=== PATIENT | female | born 1995 ===

== ENCOUNTER 2017-05-01 10:54 | Emergency (ER) | payer MEDICAID ==
[2017-05-01 11:10] VITALS: BP 112/70; PULSE 88; RESP 20; TEMP 98.3; O2SAT 99
[2017-05-01 11:11] VITALS: BMI 26.6
[2017-05-01 12:10] LABS: BASO % 0.4 % (0.0-2.0); EOS % 0.4 % (0.0-4.0); HEMATOCRIT 44.4 % (34.0-47.0); LYMPH # 2.2 K/uL (1.0-4.3); LYMPH % 26.7 % (20.0-40.0); MEAN CELL VOLUME 91.2 fl (81.0-99.0); MEAN CORPUSCULAR HEMOGLOBIN 30.8 pg (27.0-31.0); MEAN CORPUSCULAR HGB CONC 33.7 g/dL (33.0-37.0); MEAN PLATELET VOLUME 9.1 fl (7.2-11.7); MONO # 0.4 K/uL (0.0-0.8); MONO % 5.2 % (0.0-10.0); NEUT # 5.6 K/uL (1.8-7.0); NEUT % 67.3 % (50.0-75.0); NRBC % 0.1 % (0.0-0.0); RED CELL DISTRIBUTION WIDTH 12.8 % (11.5-14.5); WHITE BLOOD COUNT 8.3 K/uL (4.8-10.8)
[2017-05-01 12:17] LABS: ALB/GLOB RATIO 1.6 (1.0-2.1); ALKALINE PHOSPHATASE 82 U/L (38-126); ALT/SGPT 95 U/L (9-52); AST/SGOT 36 U/L (14-36); BILIRUBIN,TOTAL 0.5 mg/dl (0.2-1.3); BLOOD UREA NITROGEN 13 mg/dl (7-17); CALCIUM 9.1 mg/dL (8.4-10.2); CARBON DIOXIDE 21 mmol/L (22-30); CHLORIDE 102 mmol/L (98-107); GFR AFRICAN-AMERICAN > 60; GLUCOSE,RANDOM 235 mg/dL (65-105); POTASSIUM 3.8 MMOL/L (3.6-5.0); SODIUM 137 mmol/l (132-148); TOTAL PROTEIN 7.3 G/DL (6.3-8.2)
[2017-05-01] MEDS ORDERED: Sodium Chloride 0.9% 1,000 ML IV STA (12:30)
--- NOTE | 2017-05-01 13:14 | ED PDOC ---
HPI: Abdomen Time Seen by Provider: 05/01/17 11:34 Chief Complaint (Nursing): Abdominal Pain Chief Complaint (Provider): Pelvic pain History Per: Patient History/Exam Limitations: no limitations Onset/Duration Of Symptoms: Days (3) Quality Of Discomfort: Cramping Associated Symptoms: Nausea. denies: Chest Pain, Urinary Symptoms Additional Complaint(s): Patient is a 21 y/o female with no significant past medical history presenting to the emergency department for pelvic cramping with associated nausea ongoing for three days. Denies dizziness, weakness, vaginal bleeding, chest pain, shortness of breath, urinary symptoms, or other complaints. PCP: none provided. : 2 (confirmed by ED Test) Para: 0 Miscarriage: 1 Past Medical History Reviewed: Historical Data, Nursing Documentation, Vital Signs Vital Signs: Last Vital Signs Temp 98.3 F 05/01/17 11:09 Pulse 88 05/01/17 11:09 Resp 20 05/01/17 11:09 BP 112/70 05/01/17 11:09 Pulse Ox 99 05/01/17 13:21 - Medical History PMH: No Chronic Diseases - Surgical History Surgical History: Tonsillectomy - Family History Family History: States: Unknown Family Hx - Social History Current smoker - smoking cessation education provided: No Ex-Smoker (has not smoked in the last 12 months): No Alcohol: None Drugs: Denies - Home Medications Home Medications: Ambulatory Orders Medication Instructions Recorded Ondansetron [Zofran] 4 mg PO Q6H PRN #10 tab 05/01/17 - Allergies Allergies/Adverse Reactions: Allergies Allergy/AdvReac Type Severity Reaction Status Date / Time No Known Allergies Allergy Verified 05/01/17 11:20 Review of Systems ROS Statement: Except As Marked, All Systems Reviewed And Found Negative Cardiovascular: Negative for: Chest Pain Respiratory: Negative for: Shortness of Breath Gastrointestinal: Positive for: Nausea, Abdominal Pain (pelvic cramping) Genitourinary Female: Negative for: Dysuria, Frequency, Hematuria, Vaginal Bleeding Neurological: Negative for: Weakness Physical Exam - Reviewed Nursing Documentation Reviewed: Yes Vital Signs Reviewed: Yes - Physical Exam Appears: Positive for: Non-toxic, No Acute Distress Head Exam: Positive for: ATRAUMATIC, NORMAL INSPECTION, NORMOCEPHALIC Skin: Positive for: Normal Color, Warm, Dry Eye Exam: Positive for: Normal appearance Neck: Positive for: Normal, Painless ROM, Supple Cardiovascular/Chest: Positive for: Regular Rate, Rhythm. Negative for: Murmur Respiratory: Positive for: Normal Breath Sounds. Negative for: Accessory Muscle Use, Respiratory Distress Gastrointestinal/Abdominal: Positive for: Tenderness (mild right lower pelvic) Extremity: Positive for: Normal ROM. Negative for: Pedal Edema Neurologic/Psych: Positive for: Alert, Oriented (x3) - Laboratory Results Result Diagrams: 05/01/17 11:55 05/01/17 11:45 - ECG O2 Sat by Pulse Oximetry: 99 (RA) Pulse Ox Interpretation: Normal Medical Decision Making Medical Decision Making: Time: 11:53 Initial impression: Lower pelvic pain Initial plan: Beta-HCG Quantitative ED Urine Dipstick ED Urine Normal Saline 1 L IV OB Transvaginal Ultrasound Reevaluation 12:00 Urine test is positive. Will do workup to rule out ectopic with ultrasound. US: Accession No. : [id number] Patient Name / ID : NICOLE TEJADA / [id number] Exam Date : 05/01/2017 12:42:13 ( Approved ) Study Comment : Sex / Age : F / 21Y Creator : Bhanu Antunez MD Dictator : Bhanu Antunez MD Jewelry Engraver : Senior Litigation Paralegal : Bhanu Antunez MD Approver2 : Report Date : 05/01/2017 14:44:33 My Comment : PROCEDURE: First trimester ultrasound HISTORY: , pain COMPARISON: None available. TECHNIQUE: Standard protocol for this study/examination. FINDINGS: LMP: 03/16/2017 Prior examinations from the current : None TECHNIQUE: Real-time 2D imaging, duplex and color Doppler. FINDINGS: No pole identified currently Small subchorionic hemorrhage identified 3 x 3 x 8 mm. Gestational age based on gestational sac measurement 0.9 5.7 x 1.2 cm is out of range below the threshold for calculation of reliable gestational age. Gestational age derived from LMP: 6 weeks 4 days JASBIR based on LMP: 12/21/2017 JASBIR based on biometry: Cannot be determined Gestational concordance documented Yolk sac identified Uterus: Unremarkable. No Cervical abnormalities: Negative examination for cervical dilatation or effacement. Subchorionic hemorrhage: None ADNEXA: Right: 2.4 x 4.4 cm. Normal Doppler arterial waveform documented. Left: 2.5 x 2.9 cm. Normal Doppler arterial waveform documented Fluid in the cul-de-sac: None IMPRESSION: Early intrauterine gestation. Calculation of reliable gestational age based on sac measurement is not possible at this time. No pole identified. no bleeding, Rh as outpatient Rec pelvic rest, followup OB/PMD as sugars elevated. Improved in ED, feels well, denies current pain or bleeding. Scribe Attestation: Documented by Candi Alba, acting as a scribe for Tc Yoon DO. Provider Scribe Attestation: All medical record entries made by the Scribe were at my direction and personally dictated by me. I have reviewed the chart and agree that the record accurately reflects my personal performance of the history, physical exam, medical decision making, and the department course for this patient. I have also personally directed, reviewed, and agree with the discharge instructions and disposition. Disposition - Clinical Impression Clinical Impression: Hyperglycemia, Threatened - Patient ED Disposition Is Patient to be Admitted: No Counseled Patient/Family Regarding: Studies Performed, Diagnosis, Need For Followup, Rx Given - Disposition Referrals: [facility] [Outside] Disposition: Routine/Home Disposition Time: 15:05 Condition: STABLE Additional Instructions: See OB doctor in 2-3 days for followup. Recommend pelvic rest- nothing in vagina, no sex, no heavy exertion. Your sugar was mildly elevated, you may be at risk of diabetes, which could predispose to miscarriage. See OB and PMD as soon as possible for further testing and possible treatment. Prescriptions: Ondansetron [Zofran] 4 mg PO Q6H PRN #10 tab PRN Reason: Nausea/Vomiting Instructions: Threatened Miscarriage (ED), Hyperemesis Gravidarum (ED), Hyperglycemia, Non-Diabetic (ED) Forms: [employer] (Amharic)
--- NOTE | 2017-05-01 14:46 | US ---
PROCEDURE: First trimester ultrasound HISTORY: , pain COMPARISON: None available. TECHNIQUE: Standard protocol for this study/examination. FINDINGS: LMP: 03/16/2017 Prior examinations from the current : None TECHNIQUE: Real-time 2D imaging, duplex and color Doppler. FINDINGS: No pole identified currently Small subchorionic hemorrhage identified 3 x 3 x 8 mm. Gestational age based on gestational sac measurement 0.9 5.7 x 1.2 cm is out of range below the threshold for calculation of reliable gestational age. Gestational age derived from LMP: 6 weeks 4 days JASBIR based on LMP: 12/21/2017 JASBIR based on biometry: Cannot be determined Gestational concordance documented Yolk sac identified Uterus: Unremarkable. No Cervical abnormalities: Negative examination for cervical dilatation or effacement. Subchorionic hemorrhage: None ADNEXA: Right: 2.4 x 4.4 cm. Normal Doppler arterial waveform documented. Left: 2.5 x 2.9 cm. Normal Doppler arterial waveform documented Fluid in the cul-de-sac: None IMPRESSION: Early intrauterine gestation. Calculation of reliable gestational age based on sac measurement is not possible at this time. No pole identified.
== END 2017-05-01 16:02 | disposition home or self-care (01) ==
LOC: H.ER 10:54
DX: R11.0 Nausea (principal); O20.0 Threatened abortion; R73.9 Hyperglycemia, unspecified; Z87.891 Personal history of nicotine dependence
CPT/HCPCS: 76817; 80053; 81025; 84702; 85025; 96360; 99282; J7040

== ENCOUNTER 2017-05-28 14:57 | Emergency (ER) | payer SELFPAY ==
[2017-05-28 14:57] VITALS: BMI 26.6
[2017-05-28 15:09] VITALS: TEMP 98; O2SAT 98
--- NOTE | 2017-05-28 15:30 | ED PDOC ---
HPI: Female Pain Time Seen by Provider: 05/28/17 15:10 Chief Complaint (Nursing): Female Genitourinary History Per: Patient Onset/Duration Of Symptoms: Days (2) Current Symptoms Are (Timing): Still Present Severity: Mild Pain Scale Rating Of: 2 Quality Of Discomfort: Cramping Associated Symptoms: denies: Nausea, Vomiting, Diarrhea, Urinary Symptoms Additional Complaint(s): Vaginal bleeding/blood in urine x 2 days assoc with lower crampy abd pain. No dysuria or frequency Abnormal Vaginal Bleeding: Yes Past Medical History Vital Signs: Last Vital Signs Temp 98 F 05/28/17 15:06 Pulse 72 05/28/17 15:06 Resp 18 05/28/17 15:06 BP 110/62 05/28/17 15:06 Pulse Ox 98 05/28/17 15:06 - Medical History PMH: No Chronic Diseases - Surgical History Surgical History: Tonsillectomy - Family History Family History: States: Unknown Family Hx - Home Medications Home Medications: Ambulatory Orders Medication Instructions Recorded Ondansetron [Zofran] 4 mg PO Q6H PRN #10 tab 05/01/17 - Allergies Allergies/Adverse Reactions: Allergies Allergy/AdvReac Type Severity Reaction Status Date / Time No Known Allergies Allergy Verified 05/01/17 11:20 Review of Systems Constitutional: Negative for: Fever Gastrointestinal: Positive for: Abdominal Pain Genitourinary Female: Positive for: Hematuria, Vaginal Bleeding. Negative for: Dysuria, Frequency Musculoskeletal: Negative for: Back Pain Physical Exam - Physical Exam Appears: Positive for: Non-toxic, No Acute Distress Skin: Positive for: Normal Color, Warm, DRY Gastrointestinal/Abdominal: Positive for: Bowel Sounds, Soft. Negative for: Tenderness Pelvic Exam: Positive for: External Exam Normal, No Cerv. Motion Tender, No Masses. Negative for: Active Bleeding, Blood, Tender Adnexa, Tender Uterus - Laboratory Results Result Diagrams: 05/28/17 15:45 - ECG O2 Sat by Pulse Oximetry: 98 Disposition - Clinical Impression Clinical Impression: Threatened - Patient ED Disposition Is Patient to be Admitted: No Counseled Patient/Family Regarding: Studies Performed, Diagnosis, Need For Followup, Rx Given - Disposition Referrals: [facility] [Outside] Disposition: Routine/Home Disposition Time: 17:19 Condition: FAIR Instructions: Threatened Miscarriage (ED) Forms: [employer] (Greenlandic)
[2017-05-28 16:00] LABS: BASO % 0.3 % (0.0-2.0); EOS % 0.5 % (0.0-4.0); HEMATOCRIT 39.4 % (34.0-47.0); LYMPH % 22.5 % (20.0-40.0); MEAN CELL VOLUME 91.9 fl (81.0-99.0); MEAN CORPUSCULAR HEMOGLOBIN 31.3 pg (27.0-31.0); MEAN PLATELET VOLUME 8.8 fl (7.2-11.7); MONO # 0.5 K/uL (0.0-0.8); MONO % 5.9 % (0.0-10.0); NEUT # 6.4 K/uL (1.8-7.0); NEUT % 70.8 % (50.0-75.0); NRBC % 0.1 % (0.0-0.0); RED CELL DISTRIBUTION WIDTH 12.8 % (11.5-14.5)
--- NOTE | 2017-05-28 17:04 | US ---
Indication: Rule out ectopic Comparison: None available. Technique: Ob transvaginal ultrasound. Findings: Cervix length measures approximately 4.6 cm. There is a single intrauterine fetus present. The gestational sac measures 3.7 cm compatible with gestational age 8 weeks 6 days. The crown-rump length measures 2.5 cm and is compatible with a gestational age of 9 weeks 2 days. There is heart motion which measured 133.1 BPM. The right ovary measures 3.8 x 1.9 x 2.8 cm and contains 1 cm simple appearing follicle/cyst. The left ovary measures 2.7 x 2.9 x 1.5 cm. Blood flow was demonstrated to both ovaries. Impression: Live single intrauterine with estimated gestational age 9 weeks 2 days by crown-rump length calculation and 8 weeks 6 days by gestational sac calculation. heart rate 133.1 bpm. Advise an anomaly screen at 16-18 weeks gestational age
[2017-05-28 17:39] LABS: ALB/GLOB RATIO 1.6 (1.0-2.1); ALKALINE PHOSPHATASE 58 U/L (38-126); ALT/SGPT 59 U/L (9-52); AST/SGOT 25 U/L (14-36); BILIRUBIN,TOTAL 0.3 mg/dl (0.2-1.3); BLOOD UREA NITROGEN 10 mg/dl (7-17); CALCIUM 9.7 mg/dL (8.4-10.2); CARBON DIOXIDE 22 mmol/L (22-30); CHLORIDE 105 mmol/L (98-107); GFR AFRICAN-AMERICAN > 60; GLUCOSE,RANDOM 117 mg/dL (65-105); POTASSIUM 4.3 MMOL/L (3.6-5.0); SODIUM 139 mmol/l (132-148); TOTAL PROTEIN 6.8 G/DL (6.3-8.2)
[2017-05-28 17:56] VITALS: BP 112/70; PULSE 78; RESP 16
== END 2017-05-28 17:56 | disposition home or self-care (01) ==
LOC: H.ER 14:57
DX: O20.0 Threatened abortion (principal)

== ENCOUNTER 2017-06-12 12:35 | Emergency (ER) | payer SELFPAY ==
[2017-06-12 12:35] VITALS: BMI 26.6
[2017-06-12 12:42] VITALS: BP 99/53; PULSE 81; RESP 16; TEMP 98.5; O2SAT 100
--- NOTE | 2017-06-12 13:02 | ED PDOC ---
Lower Extremity Pain/Injury Time Seen by Provider: 06/12/17 12:38 Chief Complaint (Nursing): Lower Extremity Problem/Injury Chief Complaint (Provider): Left toe pain History Per: Patient History/Exam Limitations: no limitations Onset/Duration Of Symptoms: Days (x9) Current Symptoms Are (Timing): Still Present Additional Complaint(s): Alena is a 22 y/o female who presents to the ED complaining of left toe nail avulsion since last Monday. She reports the toe nail has been progressively worsening, now with redness at the site. Patient also has pain while walking. Of note, she states she is 11 weeks . PMD: Provider FABY Past Medical History Reviewed: Historical Data, Nursing Documentation, Vital Signs Vital Signs: Last Vital Signs Temp 98.5 F 06/12/17 12:41 Pulse 81 06/12/17 12:41 Resp 16 06/12/17 12:41 BP 99/53 L 06/12/17 12:41 Pulse Ox 100 06/12/17 12:41 - Medical History PMH: No Chronic Diseases - Surgical History Surgical History: Tonsillectomy - Family History Family History: States: Unknown Family Hx - Social History Current smoker - smoking cessation education provided: No Alcohol: None Drugs: Denies - Home Medications Home Medications: Ambulatory Orders Medication Instructions Recorded Ondansetron [Zofran] 4 mg PO Q6H PRN #10 tab 05/01/17 Amoxicillin 875 mg PO BID #20 tab 06/12/17 - Allergies Allergies/Adverse Reactions: Allergies Allergy/AdvReac Type Severity Reaction Status Date / Time No Known Allergies Allergy Verified 05/01/17 11:20 Review of Systems ROS Statement: Except As Marked, All Systems Reviewed And Found Negative Constitutional: Negative for: Fever Musculoskeletal: Positive for: Other (Left great toe pain, nail avulsion) Physical Exam - Reviewed Nursing Documentation Reviewed: Yes Vital Signs Reviewed: Yes - Physical Exam Appears: Positive for: Well, Non-toxic, No Acute Distress Head Exam: Positive for: ATRAUMATIC, NORMAL INSPECTION, NORMOCEPHALIC Eye Exam: Positive for: Normal appearance Neck: Positive for: Normal Respiratory: Negative for: Respiratory Distress Extremity: Positive for: Normal ROM, Other (Left great toe nail avulsion with granulated tissue and localized erythema). Negative for: Pedal Edema Neurologic/Psych: Positive for: Alert, Oriented - ECG O2 Sat by Pulse Oximetry: 100 (RA) Pulse Ox Interpretation: Normal Medical Decision Making Medical Decision Making: Time: 12:59 Initial Plan: Discussed benefits and risks of X-Ray associated with . Patient declined X-Ray at this time. Patient will be discharged home with antibiotic. Counseled on diagnosis and the importance of follow up with Podiatry Clinic. There is agreement to discharge plan. Return if symptoms persist or worsen. Scribe Attestation: Documented by Swathi Garduno, acting as a scribe for Irma Samuels PA-C Provider Scribe Attestation: All medical record entries made by the Scribe were at my direction and personally dictated by me. I have reviewed the chart and agree that the record accurately reflects my personal performance of the history, physical exam, medical decision making, and the department course for this patient. I have also personally directed, reviewed, and agree with the discharge instructions and disposition. Disposition - Clinical Impression Clinical Impression: Toe injury, Paronychia - Patient ED Disposition Is Patient to be Admitted: No Counseled Patient/Family Regarding: Diagnosis, Need For Followup, Rx Given - Disposition Referrals: Podiatry Clinic [Outside] Disposition: Routine/Home Disposition Time: 12:59 Condition: STABLE Prescriptions: Amoxicillin 875 mg PO BID #20 tab Instructions: Paronychia (ED) Forms: [employer] (Turkmen)
== END 2017-06-12 13:17 | disposition home or self-care (01) ==
LOC: H.ER 12:35
DX: L03.039 Cellulitis of unspecified toe (principal)

== ENCOUNTER 2018-12-29 11:25 | Emergency (ER) | payer MEDICAID, OTHER ==
[2018-12-29 11:39] VITALS: BP 113/68; PULSE 91; RESP 18; TEMP 98.3; O2SAT 100
[2018-12-29 11:40] VITALS: BMI 26.2
--- NOTE | 2018-12-29 12:11 | ED PDOC ---
Lower Extremity Pain/Injury Time Seen by Provider: 12/29/18 12:01 Chief Complaint (Nursing): Lower Extremity Problem/Injury History Per: Patient Additional Complaint(s): Pt. states for the past several days she's had atraumatic L great toe pain. Has had nail removed in the past and has had to see a campus security director in the past. Denies fever, trauma, discharge, hx of DM. Past Medical History Reviewed: Historical Data, Nursing Documentation, Vital Signs Vital Signs: Last Vital Signs Temp 98.3 F 12/29/18 11:39 Pulse 91 H 12/29/18 11:39 Resp 18 12/29/18 11:39 BP 113/68 12/29/18 11:39 Pulse Ox 100 12/29/18 11:39 Primary Care Provider: FAMILY PROVIDER,NO - Medical History PMH: No Chronic Diseases - Surgical History Surgical History: Tonsillectomy - Family History Family History: States: No Known Family Hx - Home Medications Home Medications: Ambulatory Orders Medication Instructions Recorded Ondansetron [Zofran] 4 mg PO Q6H PRN #10 tab 05/01/17 Amoxicillin 875 mg PO BID #20 tab 06/12/17 Cephalexin [cephalexin] 500 mg PO Q6 #28 cap 12/29/18 - Allergies Allergies/Adverse Reactions: Allergies Allergy/AdvReac Type Severity Reaction Status Date / Time No Known Allergies Allergy Verified 05/01/17 11:20 Review of Systems ROS Statement: Except As Marked, All Systems Reviewed And Found Negative Physical Exam - Physical Exam Appears: Positive for: Well, Non-toxic, No Acute Distress Skin: Positive for: Normal Color, Warm. Negative for: Rash Eye Exam: Positive for: Normal appearance Pulses-Dorsalis Pedis (L): 2+ Pulses-Dorsalis Pedis (R): 2+ - ECG O2 Sat by Pulse Oximetry: 100 Disposition - Clinical Impression Clinical Impression: Cellulitis - Patient ED Disposition Is Patient to be Admitted: No - Disposition Referrals: Podiatry Clinic [Outside] Disposition: Routine/Home Disposition Time: 12:15 Condition: STABLE Additional Instructions: FOLLOW UP WITH PODIATRY CLINIC IN 1 WEEK FOR FURTHER EVALUATION RETURN TO ED IMMEDIATELY IF SYMPTOMS WORSEN TERRELL DESOUZA, thank you for letting us take care of you today. Your provider was Salomón Mendez MD and you were treated for LT TOE PAIN. The emergency medical care you received today was directed at your acute symptoms. If you were prescribed any medication, please fill it and take as directed. It may take several days for your symptoms to resolve. Return to the Emergency Department if your symptoms worsen, do not improve, or if you have any other problems. Please contact your doctor or call one of the physicians/clinics you have been referred to that are listed on the Patient Visit Information form that is included in your discharge packet. Bring any paperwork you were given at discharge with you along with any medications you are taking to your follow up visit. Our treatment cannot replace ongoing medical care by a primary care provider outside of the emergency department. Thank you for allowing the [facility] team to be part of your care today. If you had an X-Ray or CT scan: A Radiologist will review the ED reading if any change in treatment is needed we will contact you. If you had a blood, urine, or wound culture: It will take several days for the results, if any change in treatment is needed we will contact you. If you had an STI test: It will take 48 hours for the results. Please call after 1 week if you have not heard back. Prescriptions: Cephalexin [cephalexin] 500 mg PO Q6 #28 cap Instructions: Cellulitis (Skin Infection), Adult (DC) Forms: [employer] (Turkish) Print Language: CITIZ[place]
--- NOTE | 2018-12-29 12:27 | CP.PCM.CON ---
History of Present Illness - History of Present Illness History of Present Illness: Podiatry consult note for attending Dr. Hernandez: 23 y/o F patient with no PMHx seen and evaluated in the ED for painful, infected, ingrowing left hallux toe nail. Patient states that her left big toe nail is ingrowing since long time. She states that in the last few days it started to get painful. She states that the pain is burning n nature and increases with touching her toe. She states that she feels some numbness in her left big toe. She states that there was some pus comping out from the sides of the nail yesterday. She denies any recent F/N/V/C/CP or SOB. She denies any other pedal complaint at this time. PMH: None. PSH: None Allergies: NKDA Social Hx: Denies smoking, EtOH use or Illicit drug use. Review of Systems - Review of Systems Review of Systems: As per HPI - Constitutional Constitutional: As Per HPI Past Patient History - Past Social History Smoking Status: Never Smoked - CARDIAC Hx Cardiac Disorders: No - PSYCHIATRIC Hx Substance Use: No - SURGICAL HISTORY Hx Tonsillectomy: Yes - ANESTHESIA Hx Anesthesia: Yes Hx Anesthesia Reactions: No Meds Home Medications: Home Medication List Medication Instructions Recorded Confirmed Type Cephalexin [cephalexin] 500 mg PO Q6 #28 cap 12/29/18 Rx Allergies/Adverse Reactions: Allergies Allergy/AdvReac Type Severity Reaction Status Date / Time No Known Allergies Allergy Verified 05/01/17 11:20 Physical Exam - Constitutional Appears: Well, Non-toxic, No Acute Distress - Head Exam Head Exam: ATRAUMATIC, NORMOCEPHALIC - Extremities Exam Additional comments: B/L LE focused exam: Vasc: DP/PT 2/4 b/l. Cap refill < 3 sec to all digits, Temp gradient warm to cool from proximal to distal. No edema noted. Neuro: gross and protective sensations are intact b/l. Derm: No open lesions, Left hallux toe nail is thick, discolored, dystrophic and ingrowing into the nail folds. Mild pricila-ungual erythema noted. MSK: Pain on palpating the left hallux nail folds. MMT is 5/5 to all groups. - Neurological Exam Neurological exam: Alert, Oriented x3 - Psychiatric Exam Psychiatric exam: Normal Affect, Normal Mood Results - Vital Signs Recent Vital Signs: Last Vital Signs Temp 98.3 F 12/29/18 11:39 Pulse 91 H 12/29/18 11:39 Resp 18 12/29/18 11:39 BP 113/68 12/29/18 11:39 Pulse Ox 100 12/29/18 12:20 Assessment & Plan - Assessment and Plan (Free Text) Assessment: 23 y/o F patient with no PMHx seen and evaluated in the ED for painful, infected, ingrowing left hallux toe nail. Plan: Patient seen and evaluated in the ED Plan discussed with Dr. Hernandez. Charts and vitals reviewed; Afebrile. Rx; Keflex 500 mg tablets PO Q8h for 1 week. Patient instructed to soak her left foot in Epson salt daily. Patient instructed to wear open top shoe. Patient expressed verbal understanding. Patient will follow up in the podiatry clinic upon discharge from the ED. - Date & Time Date: 12/29/18 Time: 12:25
== END 2018-12-29 12:50 | disposition home or self-care (01) ==
LOC: H.ER 11:25
DX: M79.675 Pain in left toe(s) (principal)

== ENCOUNTER 2018-12-31 12:34 | Emergency (ER) | payer OTHER ==
[2018-12-31 12:34] VITALS: BMI 26.2
[2018-12-31 12:44] VITALS: RESP 16; O2SAT 100
[2018-12-31] MEDS ORDERED: Oxycodone/Acetaminophen 5/325 mg Tab PO STA (13:26)
[2018-12-31] MEDS ORDERED: Oxycodone/Acetaminophen 5/325 mg Tab ONE (13:38)
[2018-12-31] MEDS ORDERED: Lidocaine 1% Inj (20ml) IJ ONE (13:56)
[2018-12-31] MEDS ORDERED: Lidocaine 1% Inj (20ml) ONE (13:59)
[2018-12-31] MEDS ORDERED: Naproxen 500 MG TAB PO STA (14:06)
--- NOTE | 2018-12-31 14:13 | ED PDOC ---
Lower Extremity Pain/Injury Time Seen by Provider: 12/31/18 12:54 Chief Complaint (Nursing): Lower Extremity Problem/Injury Chief Complaint (Provider): L 1st toe pain History Per: Patient History/Exam Limitations: no limitations Additional Complaint(s): Pt reports pain and swelling to L 1st toe, was evaluated in this ED 2 days ago, evaluated by Podiatry, discharge home with Rx Keflex. Has been taking Tylenol at home for pain without relief. Past Medical History Reviewed: Nursing Documentation, Vital Signs Vital Signs: Last Vital Signs Temp 97 F L 12/31/18 12:41 Pulse 75 12/31/18 12:41 Resp 16 12/31/18 12:41 BP 108/68 12/31/18 12:41 Pulse Ox 100 12/31/18 12:41 Primary Care Provider: FAMILY PROVIDER,NO - Medical History PMH: No Chronic Diseases - Surgical History Surgical History: Tonsillectomy - Family History Family History: States: Unknown Family Hx - Living Arrangements Living Arrangements: With Family - Social History Current smoker - smoking cessation education provided: No Alcohol: None - Immunization History Hx Tetanus Toxoid Vaccination: No Hx Influenza Vaccination: No Hx Pneumococcal Vaccination: No - Home Medications Home Medications: Ambulatory Orders Medication Instructions Recorded Cephalexin [cephalexin] 500 mg PO Q6 #28 cap 12/29/18 Naproxen [Naprosyn] 500 mg PO BID PRN #15 tablet 12/31/18 - Allergies Allergies/Adverse Reactions: Allergies Allergy/AdvReac Type Severity Reaction Status Date / Time No Known Allergies Allergy Verified 05/01/17 11:20 Review of Systems Constitutional: Negative for: Fever, Chills Musculoskeletal: Positive for: Foot Pain Skin: Negative for: Rash, Lesions Physical Exam - Reviewed Nursing Documentation Reviewed: Yes Vital Signs Reviewed: Yes - Physical Exam Appears: Positive for: Well Skin: Positive for: Normal Color, Warm, Dry Extremity: Positive for: Normal ROM, Swelling (Distal L 1st digit), Other (L 1ST DIGIT: Thickened nail, erythema distal to nailbed, no active discharge, no lesions, no discharge). Negative for: Deformity - ECG O2 Sat by Pulse Oximetry: 100 Medical Decision Making Medical Decision Makin yo female with toe cellulitis. - Podiatry consult - Naprosyn 13:20 Podiatry consulted. 14:15 Partial nail avulsion performed by Podiatry resident. Continue Keflex, to follow-up in Podiatry Clinic on Monday (01/04/19). Disposition - Clinical Impression Clinical Impression: Cellulitis of toe - Patient ED Disposition Is Patient to be Admitted: No - Disposition Referrals: Podiatry Clinic [Outside] Disposition: Routine/Home Disposition Time: 14:23 Condition: IMPROVED Additional Instructions: FOLLOW-UP WITH PODIATRY CLINIC ON MONDAY (01/04/19) FOR REEVALUATION. Prescriptions: Naproxen [Naprosyn] 500 mg PO BID PRN #15 tablet PRN Reason: Pain, Moderate (4-7) Instructions: Cellulitis and Erysipelas (Skin Infections)
--- NOTE | 2018-12-31 14:19 | CP.PCM.CON ---
History of Present Illness - History of Present Illness History of Present Illness: Podiatry consult note for attending Dr. Hernandez: 23 y/o F patient with no PMHx seen and evaluated in the ED for painful, infected, ingrowing left hallux toe nail. Patient was seen in the ED on 12/29/18 for the same complaints and was sent home on PO Keflex. Patient states her pain has worsened despite starting the antibiotics. Patient states she noted purulent drainage. She denies any recent F/N/V/C/CP or SOB. She denies any other pedal complaint at this time. PMH: None. PSH: None Allergies: NKDA Social Hx: Denies smoking, EtOH use or Illicit drug use. Review of Systems - Review of Systems All systems: reviewed and no additional remarkable complaints except Review of Systems: As per HPI Past Patient History - Past Social History Alcohol: None - CARDIAC Hx Cardiac Disorders: No - PSYCHIATRIC Hx Psychophysiologic Disorder: No Hx Substance Use: No - SURGICAL HISTORY Hx Tonsillectomy: Yes - ANESTHESIA Hx Anesthesia: Yes Hx Anesthesia Reactions: No Meds Allergies/Adverse Reactions: Allergies Allergy/AdvReac Type Severity Reaction Status Date / Time No Known Allergies Allergy Verified 05/01/17 11:20 Physical Exam - Constitutional Appears: Well, Non-toxic, No Acute Distress - Head Exam Head Exam: ATRAUMATIC, NORMOCEPHALIC - Extremities Exam Additional comments: B/L LE focused exam: Vasc: DP/PT 2/4 b/l. Cap refill < 3 sec to all digits, Temp gradient warm to cool from proximal to distal. No edema noted. Neuro: gross and protective sensations are intact b/l. Derm: Left hallux toe nail is thick, discolored, dystrophic and ingrowing into the nail folds. Mild pricila-ungual erythema noted. MSK: Pain on palpating the left hallux nail folds. MMT is 5/5 to all groups. - Neurological Exam Neurological exam: Alert, Oriented x3 - Psychiatric Exam Psychiatric exam: Normal Affect, Normal Mood Results - Vital Signs Recent Vital Signs: Last Vital Signs Temp 97 F L 12/31/18 12:41 Pulse 75 12/31/18 12:41 Resp 16 12/31/18 12:41 BP 108/68 12/31/18 12:41 Pulse Ox 100 12/31/18 14:16 Assessment & Plan - Assessment and Plan (Free Text) Assessment: 23 y/o F patient with no PMHx seen and evaluated in the ED for painful, infected, ingrowing left hallux toe nail. Plan: Patient seen and evaluated in the ED Plan discussed with Dr. Hernandez Charts and vitals reviewed, Afebrile Patient agreeable to a partial nail avulsion at this time to the lateral border Patient given 6 cc of 1% Lidocaine in an H-block type fashion, lateral nail border removal with sterile instruments Site was cleaned with saline, dressed with bacitracin, DSD Patient to keep dressing clean and dry for 2 days, and return to ED for evaluation on Monday Patient told to make an appointment Patient to continue Keflex 500 mg tablets PO Q8h for 1 week Patient to change dressing in 48 hours Patient instructed to wear open top shoe Patient expressed verbal understanding Patient will follow up in the podiatry clinic upon discharge from the ED - Date & Time Date: 12/31/18 Time: 14:22
[2018-12-31] MEDS ORDERED: Naproxen 500 MG TAB PO ONE (14:43)
[2018-12-31 16:04] VITALS: BP 116/61; PULSE 70; TEMP 97.5
== END 2018-12-31 15:03 | disposition home or self-care (01) ==
LOC: H.ER 12:34
DX: L03.039 Cellulitis of unspecified toe (principal)